=== PATIENT | female | born 1965 | race Caucasian/White ===

== ENCOUNTER 2020-11-16 21:00 | Emergency (ER) | payer BC ==
[2020-11-16] MEDS ORDERED: Potassium Chloride Riders 40 MEQ in Premix Bag 1 BAG IV ONE (21:45)
--- NOTE | 2020-11-16 21:48 | EDM.PDOC ---
ED HPI GENERAL MEDICAL PROBLEM - General Chief Complaint: General Stated Complaint: POTASSIUM Time Seen by Provider: 11/16/20 21:43 Source of Information: Reports: Patient, Family, RN Notes Reviewed History Limitations: Reports: No Limitations - History of Present Illness INITIAL COMMENTS - FREE TEXT/NARRATIVE: 54-year-old female presents emergency department today for low potassium, she has known history of stage II pancreatic cancer does have a history of low potassium secondary to her treatment she states she has had treatment multiple times cannot tolerate oral products but usually gets potassium through her port, denies any symptoms at this time Abdomen Pain Score (Numeric/FACES): 4 - Related Data Allergies Allergy/AdvReac Type Severity Reaction Status Date / Time phenobarbital Allergy Mild Seizure Verified 11/16/20 21:23 prednisone Allergy Mild Arrhythmias Verified 11/16/20 21:24 Home Meds: Home Meds Amylase/Lipase/Protease [Monica DR 24,000 Unit] 1 units PO QID 11/16/20 [History] Loperamide HCl [Loperamide] 2 mg PO TID 11/16/20 [History] hydroCHLOROthiazide [Hydrochlorothiazide] 25 mg PO DAILY 11/16/20 [History] Past Medical History HEENT History: Reports: Impaired Vision, Other (See Below) Other HEENT History: loss periph. 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 2020 Social & Family History - Tobacco Use Tobacco Use Status *Q: Former Tobacco User Years of Tobacco use: 20 Packs/Tins Daily: 1 Used Tobacco, but Quit: No Month/Year Tobacco Last Used: 2002 Second Hand Smoke Exposure: No - Caffeine Use Caffeine Use: Reports: None - Recreational Drug Use Recreational Drug Type: Reports: Marijuana/Hashish ED ROS GENERAL - Review of Systems Review Of Systems: See Below Constitutional: Reports: No Symptoms Respiratory: Reports: No Symptoms Cardiovascular: Reports: No Symptoms GI/Abdominal: Reports: No Symptoms ED EXAM, GENERAL - Physical Exam Exam: See Below Exam Limited By: No Limitations General Appearance: Alert, WD/WN, No Apparent Distress Respiratory/Chest: No Respiratory Distress Course - Vital Signs Last Recorded V/S: Last Vital Signs Temp 97.6 F 11/16/20 21:25 Pulse 93 11/16/20 21:25 Resp 18 11/16/20 21:25 BP 144/96 H 11/16/20 21:25 Pulse Ox 97 11/16/20 21:25 - Orders/Labs/Meds Labs: Laboratory Tests 11/16/20 Range/Units 21:59 Sodium 142 (140-148) mmol/L Potassium 1.9 L* (3.6-5.2) mmol/L Chloride 99 L (100-108) mmol/L Carbon Dioxide 26 (21-32) mmol/L Anion Gap 18.9 H (5.0-14.0) mmol/L BUN 11 (7-18) mg/dL Creatinine 1.1 H (0.6-1.0) mg/dL Est Cr Clr Drug Dosing 47.80 mL/min Estimated GFR (MDRD) 52 L (>60) Glucose 208 H (74-106) mg/dL Calcium 9.1 (8.5-10.1) mg/dL Meds: Medications Discontinued Medications Generic Name Dose Route Start Last Admin Trade Name Freq PRN Reason Stop Dose Admin Potassium Chloride 40 meq/ 100 mls @ 25 mls/hr 11/16/20 21:45 11/16/20 22:24 Premix IV 11/17/20 01:44 25 mls/hr ONETIME ONE Administration Departure - Departure Time of Disposition: 02:30 Disposition: Home, Self-Care 01 Condition: Fair Clinical Impression: Hypokalemia - Discharge Information Instructions: Hypokalemia Referrals: Elijah Adams MD [Primary Care Provider] - Forms: ED Department Discharge Additional Instructions: Please follow-up with your primary care in the next 1 to 2 days to recheck potassium Sepsis Event Note (ED) - Evaluation Sepsis Screening Result: No Definite Risk - Focused Exam Vital Signs: Vital Signs Temp Pulse Resp BP Pulse Ox 11/16/20 21:25 97.6 F 93 18 144/96 H 97 11/16/20 21:18 97.6 F 93 18 144/96 H 97 - Assessment/Plan Plan: Assessment Acuity = acute Site and laterality = hypokalemia complicated patient with known history of pancreatic cancer Etiology = unknown Manifestations = none Location of injury = Home Lab values = potassium low at 1.9 consistent with hypokalemia severe Plan She received 40 mEq of potassium through her PICC line her follow-up with her primary care in the next 1 to 2 days for reevaluation recheck potassium at that time This note was dictated using [employer] voice recognition software please call with any questions on syntax or grammar.
== END 2020-11-17 02:23 | disposition home or self-care (01) ==
LOC: JP.ED 21:00
DX: E87.6 Hypokalemia (principal); I10 Essential (primary) hypertension; Z87.891 Personal history of nicotine dependence; Z88.8 Allergy status to other drugs, medicaments and biological substances; Z79.899 Other long term (current) drug therapy
CPT/HCPCS: 36415; 80048; 96365; 96366; 99282; 99284; J1642; J3480